=== PATIENT | male | born 1970 | race Caucasian/White ===

== ENCOUNTER → 2017-03-15 | Outpatient (CLI) | payer OTHER | LOC: CIMAGING 15:26 | PROVIDERS: ATTEND Family Medicine | DX: M19.071 Primary osteoarthritis, right ankle and foot (principal); M25.471 Effusion, right ankle | CPT/HCPCS: 73610-PO ==

== ENCOUNTER → 2017-08-24 | Outpatient (CLI) | payer OTHER | LOC: CIMAGING 07:08 | PROVIDERS: ATTEND Family Medicine | DX: K76.0 Fatty (change of) liver, not elsewhere classified (principal) | CPT/HCPCS: 76705-PO ==